=== PATIENT | female | born 1970 | race Two or more races ===

== ENCOUNTER 2024-11-18 09:12 | Emergency (ER) | payer MEDICAID, SELFPAY ==
[2024-11-18 09:55] VITALS: BP 125/83; PULSE 106; RESP 18; TEMP 36.6; O2SAT 97; BMI 27.0
--- NOTE | 2024-11-18 10:22 | PD.EDRME ---
Rapid Medical Screening Exam [facility] Arrival date/time: 11/18/24 09:12 Chief Complaint: Abdominal Pain Vital signs: Vital Signs Temperature 97.9 F 11/18/24 09:55 Pulse Rate 106 H 11/18/24 09:55 Respiratory Rate 18 11/18/24 09:55 Blood Pressure 125/83 11/18/24 09:55 Pulse Oximetry (%) 97 11/18/24 09:55 Oxygen Delivery Method Room Air 11/18/24 09:55 Pulse ox is 97% [facility] Narrative: 54-year-old female presents to ED with a complaint of right lower quadrant pain x 2 weeks. Denies vomiting, diarrhea. Describes the pain as a hauling type of pain that radiates to the right flank.
[2024-11-18 10:41] LABS: Collection Type, Urine Clean Catch
[2024-11-18 10:47] LABS: Basophils # (Auto) 0.0 Thou/mm3 (0.0-0.2); Basophils % (Auto) 0 % (0-2.5); Eosinophils # (Auto) 0.1 Thou/mm3 (0.0-0.5); Eosinophils % (Auto) 1 % (0-10); Hematocrit 43.7 % (36.0-46.0); Hemoglobin 15.2 g/dL (12.0-16.0); Immature Granulocytes Auto 0.01 Thou/mm3 (0.00-0.00); Lymphocytes # (Auto) 1.9 Thou/mm3 (1.0-4.8); Lymphocytes % (Auto) 26 % (10-50); Mean Corpuscular HGB Conc 34.8 g/dl (31.0-37.0); Mean Corpuscular Hemoglobin 31.0 pg (25.0-35.0); Mean Corpuscular Volume 89 fL (80-100); Monocytes # (Auto) 0.5 Thou/mm3 (0.0-0.8); Monocytes % (Auto) 7 % (0-12); Neutrophils # (Auto) 4.6 Thou/mm3 (1.8-7.7); Neutrophils % (Auto) 65 % (37-80); Nucleated Red Blood Cell # 0.00 Thou/mm3 (0.00-0.00); Nucleated Red Blood Cell % 0 /100 WBC (0); Platelet Count 259 Thou/mm3 (140-440); RDW Standard Deviation 39.1 fL (36.4-46.3); Red Blood Count 4.90 Miln/mm3 (4.00-5.20); White Blood Count 7.1 Thou/mm3 (3.6-11.0)
[2024-11-18 11:00] LABS: Sed Rate (ESR) 9 mm/hr (0-30)
[2024-11-18 11:07] LABS: Bilirubin,Urine Negative (Negative); Blood,Urine Negative (Negative); Clarity,Urine Turbid (Clear/Hazy); Color,Urine Lt-Yellow (Lt Yel-Yel); Glucose, Urine 4+ (Negative); Ketones,Urine Negative (Negative); Leukocyte Esterase,Urine Positive (Negative); Nitrite,Urine Negative (Negative); PH,Urine 6.0 (5.0-7.0); Protein,Urine Negative (Neg - Trace); RBC,Urine 2 /hpf (0-3); Specific Gravity,Urine 1.017 (1.001-1.035); Squamous Epithelial Cell,Urine 4 /hpf (0-5); Urobilinogen,Urine Negative mg/dL (0.0-1.0); WBC,Urine 44 /hpf (0-5)
[2024-11-18 11:10] LABS: Bacteria,Urine 4+; HCG Qualitative,Urine Negative
[2024-11-18 11:14] LABS: Alanine Aminotransferase 8 U/L (10-49); Albumin, Serum 4.6 gm/dL (3.5-5.0); Albumin/Globulin Ratio 1.7 (1.2-2.2); Alkaline Phosphatase 98 U/L (46-116); Anion Gap 6 (7-16); Aspartate Amino Transferase 11 U/L (0-34); BUN/Creatinine Ratio 14 Ratio (12-20); Bilirubin,Total 0.7 mg/dL (0.3-1.2); Blood Urea Nitrogen 11 mg/dL (9-23); Calcium 10.0 mg/dL (8.3-10.6); Calcium (Corrected) 10.0 mg/dL (8.5-10.1); Carbon Dioxide 30.6 mMol/L (20.0-31.0); Chloride 100 mMol/L (98-107); Creatinine (Component) 0.8 mg/dL (0.6-1.3); Estimated Creatinine Clearance 54.3 mL/min (>60); Globulin 2.7 gm/dL (2.3-3.5); Glucose 360 mg/dL (74-106); Lipase 34 U/L (12-53); Osmolality,Calculated 288 (275-295); Potassium 5.0 mMol/L (3.4-5.1); Sodium 137 mMol/L (136-145); Total Protein 7.3 gm/dL (5.7-8.2); eGFR > 60 See Note
--- NOTE | 2024-11-18 11:24 | XR_ITS ---
Examination: CT abdomen and pelvis without contrast. Coronal 3-D reconstructions. Sagittal 2-D reconstructions. Date and time of exam:November 18, 2024 1150 hours INDICATIONS: Right flank pain beginning 2 weeks ago CTDI: vol (mGy): 5.35 DLP: (mGycm): 283 Technique: Axial images of the abdomen have been obtained, 3 mm slice thickness Intravenous contrast material has not been administered. Low dose protocols were performed. One or more of the following dose reduction techniques were used; automated exposure control, adjustment of the mA and/or KV according to patient size, use of iterative reconstruction technique. Findings: No focal liver or splenic lesions No gallstones 1 mm nonobstructing right renal calculus, no hydronephrosis or ureteral calculi Normal appendix No bowel obstruction No bladder mass or bladder calculi Moderate osteopenia IMPRESSION: 1 mm nonobstructing right renal calculus, no hydronephrosis or ureteral calculi
[2024-11-18 15:15] VITALS: BP 133/86; PULSE 101; RESP 17; TEMP 36.8; O2SAT 96
--- NOTE | 2024-11-18 15:35 | PC.NURSE ---
PO [place] order cancelled by provider, patient will receive IV toradol for pain mangement.
--- NOTE | 2024-11-18 15:40 | EDNOTE_ITS ---
ED General RME/HPI General Chief complaint: Abdominal Pain Stated complaint: ABD PAIN RADIATING TO BACK, 12/24 Time Seen by Provider: 11/18/24 11:16 Arrival date/time: 11/18/24 09:12 CC: Right flank pain intermittent for past 2 weeks with progressive increasing severity, denies any dysuria. Denies nausea or vomiting. Patient is a diabetic states that she is out of her glipizide but continues to take her metformin 1000 mg twice daily. Patient denies chest pain fever chills shortness of breath or difficulty breathing. RME / HPI RME / HPI narrative: 54-year-old female presents to ED with a complaint of right lower quadrant pain x 2 weeks. Denies vomiting, diarrhea. Describes the pain as a hauling type of pain that radiates to the right flank. Related Data Previous Rx's ?Medication ?Instructions ?Recorded ciprofloxacin HCl 500 mg tablet 500 mg PO BID #14 tabs 11/18/24 glipizide 2.5 mg tablet 2.5 mg PO QDAY #30 tabs 09/07 Allergies Allergy/AdvReac Type Severity Reaction Status Date / Time No Known Allergies Allergy Verified 11/18/24 09:16 Review of Systems Review of Systems Narrative Review of Systems: GEN: No fever, no chills, no weight loss EYES: No discharge, no visual changes, no pain HEENT: No ear pain, no congestion, no sore throat PULM: No shortness of breath, no cough, no congestion CV: No chest pain, no dyspnea on exertion, no palpitations GI: No nausea, no vomiting, no diarrhea, no pain, no constipation : No frequency, no urgency, no dysuria MUSC/SKEL: No joint pain, no back pain, +flank pain SKIN: No rash PSYCH: No hallucinations, no depression HEME/LYMPH: No easy bleeding or bruising tendencies NEURO: No weakness, no headache ED Exam Narrative Physical exam: [General: Petite but not emaciated, not in any acute distress Head normocephalic HEENT: Within acceptable limits Neck is supple nontender Chest equal chest rise nontender to palpation Respiratory: Clear to auscultation no wheezes crackles or rubs CV: Rate rhythm is regular no murmurs rubs or clicks Abdomen is distended secondary to body habitus soft nontender no masses positive bowel sounds all 4 quadrants Back: No CVA tenderness no spinous process tenderness from cervical spine thoracic and lumbar spine Skin: Intact no petechiae rash induration ulceration or crepitus Extremities: Moving all extremity against resistance cap refill less than 2 seconds neurosensory intact Neuro: Awake alert oriented x3 Glascow coma 15 no focal deficits] Course Quality Measures none Orders Category Date Time Status CT Screening NOW Care 11/18/24 10:[address] Screening X1 Care 11/18/24 10:23 Completed Saline [Insert IV] NOW Care 11/18/24 11:[address] abdomen pelvis wo con Stat Exams 11/18/24 11:24 Completed CBC Stat Lab 11/18/24 10:35 Completed Comprehensive Metabolic Panel Stat Lab 11/18/24 10:35 Completed HCG Qualitative,Urine Stat Lab 11/18/24 10:34 Completed Lipase Stat Lab 11/18/24 10:35 Completed Sed Rate (ESR) Stat Lab 11/18/24 10:35 Completed Urinalysis Stat Lab 11/18/24 10:34 Completed HYDROcodone/APAP 10/325 [[place] 10/325] Med 11/18/24 10:25 Discontinued 1 tab PO X1 ONE Insulin Regular Med 11/18/24 11:17 Discontinued 5 unit SC X1 ONE Ketorolac Inj [Toradol Inj] Med 11/18/24 16:40 Discontinued 15 mg IM X1 ONE Ketorolac Inj [Toradol Inj] Med 11/18/24 15:32 Discontinued 15 mg IVP X1 ONE cefTRIAXone [Rocephin] 1,000 mg Med 11/18/24 16:23 Discontinued Lidocaine 1% 20 ml [Xylocaine 1% 20 ML] 2.1 ml IM X1 cefTRIAXone/D5w 1gm IV premix [Rocephin/D5w 1gm IV Med 11/18/24 11:17 Discontinued premix] 1 gm in 50 ml IV X1 Vital Signs Vital signs: Vital Signs Temperature 97.9 F 11/18/24 09:55 Pulse Rate 106 H 11/18/24 09:55 Respiratory Rate 18 11/18/24 09:55 Blood Pressure 125/83 11/18/24 09:55 Pulse Oximetry (%) 97 11/18/24 09:55 Oxygen Delivery Method Room Air 11/18/24 09:55 Discharge Plan Plan Patient Disposition: HOME (Self Care) Patient condition on transfer: Stable Prescriptions/Referrals Prescriptions/Med Rec: New glipizide 2.5 mg tablet 2.5 mg PO QDAY Qty: 30 0RF ciprofloxacin HCl 500 mg tablet 500 mg PO BID Qty: 14 0RF Referrals: Tae Lainez MD [Physician] - In 1 week No Primary/Family,Physician [Primary Care Provider] - In 1 week Problem List Clinical Impression: UTI (urinary tract infection), Hyperglycemia Patient/Caregiver Discharge Instructions Other Activity Instructions:: Take your medications as prescribed, follow-up with the [facility] listed above if there is a worsening of symptoms in spite of the medications return to the emergency room medially for further evaluation. Education Materials: Urinary Tract Infections in Women, ED Diabetes with High Blood Sugar Print Language: Greenlandic Stand Alone Forms: [employer] Award Info., Work/School Release, Patient Portal Info Letter BROOKE/YUDELKA Supervising Physician MARLEE Supervising Physician: Jake Martinez ENP MDM Clinical Information Provided by patient and EMS Medical Records Reviewed [facility] Meds/Rx Considered, not Ordered None Labs/Rad/Tests considered, not Ordered None Chronic Illness/Social Conditions Add or document further as needed: Diabetes EKG EKG not done Lab Interpretation Lab(s) interpretation(s): CBC shows no acute leukocytosis anemia thrombocytopenia CMP shows a blood glucose of 360 no no other significant electrolyte imbalances renal impairment transaminitis or T. bili elevation Urine is turbid to 4+ ketones 44 WBCs leukocyte esterase positive with 4+ bacteria. Imaging Provider imaging interpretation(s): CT of the abdomen shows the patient has a 1 mm nonobstructive stone in the renal pelvis otherwise no acute finding as interpreted by radiology. Medication Administration(s) Medication Administration History Discontinued Medications Hydrocodone Bitart/Acetaminophen (Hydrocodone/Apap 10/325 Tab) 1 tab PO X1 ONE Stop: 11/18/24 10:26 Last Admin: 11/18/24 15:35 Dose: Not Given Documented By: Non-Admin Reason: Cancelled by Provider Ceftriaxone Sodium 1,000 mg/ (Lidocaine HCl 2.1 ml) 0 mg IM X1 ONE Stop: 11/18/24 16:24 Last Admin: 11/18/24 16:44 Dose: 1,000 mg Documented By: Ceftriaxone Sodium/Dextrose (Rocephin/D5w 1gm Iv Premix) 1 gm in 50 mls @ 100 mls/hr IV X1 ONE Stop: 11/18/24 11:46 Last Admin: 11/18/24 16:56 Dose: Not Given Documented By: Non-Admin Reason: Cancelled by Provider Insulin Human Regular (Insulin Hum Regular 1 Unit/0.01 Ml (Per Unit)) 5 unit SC X1 ONE Stop: 11/18/24 11:18 Last Admin: 11/18/24 16:41 Dose: 5 unit Documented By: Co-signed By: MARICHUY Ketorolac Tromethamine (Ketorolac Inj 30 Mg/Ml Vial) 15 mg IVP X1 ONE Stop: 11/18/24 15:33 Last Admin: 11/18/24 16:56 Dose: Not Given Documented By: Non-Admin Reason: Cancelled by Provider Ketorolac Tromethamine (Ketorolac Inj 60 Mg/2 Ml Vial) 15 mg IM X1 ONE Stop: 11/18/24 16:41 Last Admin: 11/18/24 16:44 Dose: 15 mg Documented By: Diagnosis Differential diagnosis: Hyperglycemia pyelonephritis UTI Dispositon Disposition: Discharge Home
[2024-11-18] MEDS: INSULIN HUM REGULAR 1 UNIT/0.01 ML (PER UNIT) 5 UNIT SC (16:41)
[2024-11-18] MEDS: cefTRIAXone 1,000 MG, LIDOCAINE 1% 20 ML 2.1 ML IM (16:44)
[2024-11-18] MEDS: KETOROLAC INJ 60 MG/2 ML VIAL 15 MG IM (16:44)
== END 2024-11-18 17:35 | disposition home or self-care (01) ==
PROVIDERS: Physician Assistant; Emergency Provider Emergency Medicine
DX: N39.0 Urinary tract infection, site not specified (principal); E11.65 Type 2 diabetes mellitus with hyperglycemia; Z79.84 Long term (current) use of oral hypoglycemic drugs
CPT/HCPCS: 36415; 74176; 80053; 81001; 81025; 83690; 85025; 85652; 96372; 99283; J0696; J1815; J1885; J3490

== ENCOUNTER 2025-03-16 07:30 | Emergency (ER) | payer MEDICAID, SELFPAY ==
[2025-03-16 07:31] VITALS: BMI 18.1
[2025-03-16 07:39] VITALS: BP 130/85; PULSE 130; RESP 19; TEMP 36.8; O2SAT 97
--- NOTE | 2025-03-16 07:46 | EKG_ITS ---
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
--- NOTE | 2025-03-16 07:47 | PD.EDRME ---
Rapid Medical Screening Exam E Arrival date/time: 03/16/25 07:30 54-year-old female with no known medical history presents to the emergency room with a chief complaint of right leg pain, palpitations, back pain x 1 month that has progressively gotten worse in the last 3 days I have greeted and performed a focused initial assessment of this patient. A comprehensive ED assessment and evaluation of the patient, analysis of all test results, and completion of the medical decision making process will be conducted by additional ED providers. Chief Complaint: Extremity Injury, Lower Time Seen by Provider: 03/16/25 07:36 Vital signs: Vital Signs Temperature 98.2 F 03/16/25 07:39 Pulse Rate 130 H 03/16/25 07:39 Respiratory Rate 19 03/16/25 07:39 Blood Pressure 130/85 H 03/16/25 07:39 Pulse Oximetry (%) 97 03/16/25 07:39 Oxygen Delivery Method Room Air 03/16/25 07:39 Vital signs reviewed by provider: Yes Exam: Right sciatic notch tenderness with palpation Strong and regular rhythm Clinical Impression: Tachycardia/sciatica
[2025-03-16] MEDS: KETOROLAC INJ 60 MG/2 ML VIAL 30 MG IM (07:58)
[2025-03-16 08:35] LABS: Basophils # (Auto) 0.0 Thou/mm3 (0.0-0.2); Basophils % (Auto) 0 % (0-2.5); Eosinophils # (Auto) 0.2 Thou/mm3 (0.0-0.5); Eosinophils % (Auto) 2 % (0-10); Hematocrit 40.3 % (36.0-46.0); Hemoglobin 13.8 g/dL (12.0-16.0); Immature Granulocytes Auto 0.02 Thou/mm3 (0.00-0.00); Lymphocytes # (Auto) 2.7 Thou/mm3 (1.0-4.8); Lymphocytes % (Auto) 34 % (10-50); Mean Corpuscular HGB Conc 34.2 g/dl (31.0-37.0); Mean Corpuscular Hemoglobin 30.3 pg (25.0-35.0); Mean Corpuscular Volume 89 fL (80-100); Monocytes # (Auto) 0.6 Thou/mm3 (0.0-0.8); Monocytes % (Auto) 7 % (0-12); Neutrophils # (Auto) 4.6 Thou/mm3 (1.8-7.7); Neutrophils % (Auto) 57 % (37-80); Nucleated Red Blood Cell # 0.00 Thou/mm3 (0.00-0.00); Nucleated Red Blood Cell % 0 /100 WBC (0); Platelet Count 276 Thou/mm3 (140-440); RDW Standard Deviation 39.7 fL (36.4-46.3); Red Blood Count 4.55 Miln/mm3 (4.00-5.20); White Blood Count 8.1 Thou/mm3 (3.6-11.0)
[2025-03-16 08:35] LABS: Collection Type, Urine Clean Catch
[2025-03-16 08:36] VITALS: BP 145/98; PULSE 110; RESP 18; TEMP 36.7; O2SAT 98
[2025-03-16 08:55] LABS: B-Type Natriuretic Peptide < 20 pg/mL (0-100)
--- NOTE | 2025-03-16 08:57 | PD.EDEXREM ---
ED Extremity Problem RME/HPI General Chief complaint: Extremity Injury, Lower Stated complaint: Leg pain Time Seen by Provider: 03/16/25 07:36 Arrival date/time: 03/16/25 07:30 RME / HPI RME / HPI Narrative: 03/16/25 07:30 54-year-old female with no known medical history presents to the emergency room with a chief complaint of right leg pain, palpitations, back pain x 1 month that has progressively gotten worse in the last 3 days I have greeted and performed a focused initial assessment of this patient. A comprehensive ED assessment and evaluation of the patient, analysis of all test results, and completion of the medical decision making process will be conducted by additional ED providers. DR. COBOS MAIN ED EVALUATION 54 year old female with recently diagnosed diabetes presents to the ED for evaluation of bilateral leg pain beginning intermittently 3 months ago, though worsening in severity last night. Pain described as aching in sensation that is localized to bilateral thighs, rating as severe. Additionally complains of similar pain to her mid upper back that is accompanied by an itching sensation, rating as moderate. Reportedly had consulted with her PCP 3 weeks ago who performed labs, urine and stool tests and told her pain was most likely due to allergies and prescribed medications. States the medications have not provided any relief. Patient denies taking any medication for pain at home. Denies any history of similar pain. Denies any rash. Exam: Right sciatic notch tenderness with palpation Strong and regular rhythm Impression: Tachycardia/sciatica Related Data Previous Rx's ?Medication ?Instructions ?Recorded ciprofloxacin HCl 500 mg tablet 500 mg PO BID #14 tabs 11/18/24 glipizide 2.5 mg tablet 2.5 mg PO QDAY #30 tabs 11/18/24 hydrocodone 5 mg-acetaminophen 325 1 tab PO Q6H PRN pain #14 tabs 03/16/25 mg tablet ibuprofen 600 mg tablet 600 mg PO Q6H PRN pain #30 tabs 03/16/25 Allergies Allergy/AdvReac Type Severity Reaction Status Date / Time No Known Allergies Allergy Verified 03/16/25 07:33 Review of Systems Review of Systems Systems Reviewed: All systems reviewed, normal except as documented Past Medical History Past Medical History ENDOCRINE: Positive Diabetes Mellitus Type 2 Social History SMOKING STATUS: Never smoker ED Exam Narrative Physical exam: GENERAL APPEARANCE: alert and oriented x 4, well-developed, well-nourished, no acute distress HEENT: Normocephalic, atraumatic; pupils equal, round, reactive to light; EOMI; mucous membranes pink, moist; oropharynx clear NECK: Supple LUNGS: CTABL; no wheezes, no rales, no rhonchi HEART: Regular rate, regular rhythm; normal S1, S2; no murmurs ABDOMEN: non distended; normal BS; soft, no tenderness, no guarding, no rebound; no masses, no organomegaly, no hernia BACK: no CVA tenderness, no rashes, mild mid back tenderness to palpation, no step off, deformity, or crepitus. EXTREMITIES: atraumatic; no edema NEUROLOGIC: awake; alert and oriented x4; cranial nerves II-XII grossly intact; no focal sensory or motor deficits PSYCHIATRIC: appropriate mood and affect SKIN: warm, dry, normal color; no rashes Course Quality Measures none Orders Category Date Time Status EKG (ED ONLY) *Do not use* NOW Care 03/16/25 07:46 Completed EKG (ED Only) Stat Exams 03/16/25 07:46 Draft XR lumbar spine 2-3V Stat Exams 03/16/25 09:31 Completed XR thoracic spine 3V Stat Exams 03/16/25 09:23 Completed B-Type Natriuretic Peptide Stat Lab 03/16/25 08:15 Completed CBC Stat Lab 03/16/25 08:15 Completed Comprehensive Metabolic Panel Stat Lab 03/16/25 08:15 Completed Free T4 (Free Thyroxine) Stat Lab 03/16/25 08:15 Completed Magnesium Stat Lab 03/16/25 08:15 Completed TSH [Thyroid Stimulating Hormone] Stat Lab 03/16/25 08:15 Completed Troponin I Stat Lab 03/16/25 08:15 Completed Urinalysis, C/S if Indicated Stat Lab 03/16/25 08:30 Completed HYDROcodone*/APAP 5/325 [[place] 5/325] Med 03/16/25 09:31 Discontinued 1 tab PO X1 ONE Ketorolac Inj [Toradol Inj] Med 03/16/25 07:46 Discontinued 30 mg IM X1 ONE Vital Signs Vital signs: Vital Signs Temperature 98.2 F 03/16/25 07:39 Pulse Rate 130 H 03/16/25 07:39 Respiratory Rate 19 03/16/25 07:39 Blood Pressure 130/85 H 03/16/25 07:39 Pulse Oximetry (%) 97 03/16/25 07:39 Oxygen Delivery Method Room Air 03/16/25 07:39 Pulse ox is 97% on room air which is adequate. Extremity Problem MDM Narrative MDM Narrative:: Marimar Peng am scribing for and in the presence of Dr. Cobos. Patient remains clinically stable throughout the emergency department visit. We reviewed all the results, analysis, and treatment plans. Patient is amenable to discharge. Strict return precautions were outlined. Patient data External records reviewed:: [facility] previous records Clinical information provided by:: patient Social determinants that could affect healthcare access:: none Patient has the following chronic illnesses:: Diabetes How is presenting disease/condition affected by chronic disease/condition?: uneffected by Evaluation data The following diagnostics were reviewed and interpreted by me:: lab results, radiology exam(s) and EKG tracing(s) (EKG @ 07:49 AM, sinus tachycardia, rate 125, no STEMI. ) Lab and/or radiology exams considered but not ordered:: None Interpretation Summary: Ordering Physician: Bruna Cobos MD Date of Service: 03/16/25 Procedure(s): XR thoracic spine 3V Accession Number(s): [id number] cc: Tae Lainez MD; Jann Laguerre MD; Bruna Cobos MD~ EXAMINATION: Thoracic spine 3 views TECHNIQUE: AP lateral coned lateral upper dorsal spine 3 views Date and time: March 16, 2025, 1006 hours INDICATIONS: Back pain radiating to the legs this week FINDINGS: Adequate alignment thoracic vertebral bodies on the lateral view Mild thoracic spondylosis Mild diffuse thoracic disc narrowing No thoracic fracture IMPRESSION: Mild diffuse thoracic degenerative disc disease Dictated By: Jann Laguerre MD Signed By: <Electronically signed by Jann Laguerre MD in OV> 03/16/25 1025 Ordering Physician: Bruna Cobos MD Date of Service: 03/16/25 Procedure(s): XR lumbar spine 2-3V Accession Number(s): [id number] cc: Tae Lainez MD; Jann Laguerre MD; Bruna Cobos MD~ EXAMINATION: Lumbar spine 3 views TECHNIQUE: AP lateral: Lateral lower lumbar spine 3 views Date and time: March 16, 2025, 0957 hours INDICATIONS: Low back pain radiating down both legs beginning 2 months ago. FINDINGS: Moderate osteopenia Adequate alignment lumbar vertebral bodies on the lateral view Mild disc narrowing L5-S1 No spondylolisthesis IMPRESSION: No lumbar fracture Mild disc narrowing L5-S1 Dictated By: Jann Laguerre MD Signed By: <Electronically signed by Jann Laguerre MD in OV> 03/16/25 1026 Medications / Prescriptions Medications or Prescriptions considered but not ordered:: None Medication administrations:: Medication Administration History Discontinued Medications Hydrocodone Bitart/Acetaminophen (Hydrocodone/Apap 5/325 Tablet) 1 tab PO X1 ONE Stop: 03/16/25 09:32 Last Admin: 03/16/25 09:38 Dose: 1 tab Documented By: KIN Ketorolac Tromethamine (Ketorolac Inj 60 Mg/2 Ml Vial) 30 mg IM X1 ONE Stop: 03/16/25 07:47 Last Admin: 03/16/25 07:58 Dose: 30 mg Documented By: KIN See above Consultations Consultation(s) initiated? (list below): No Diagnosis Most likely diagnosis given after review of the tests above:: Back pain DJD Admission Indicated Admission indicated?: not indicated Admission Request Was there a request for admission?: No Disposition Plan Disposition Plan: Discharge Discharge Attestation Discharge Attestation: The patient and all family members were given an opportunity to ask questions and understood the discharge instructions. Discharge instructions specifically effects, indications for sooner follow up or return to the emergency department, and the expected course of current diagnosis. Patient condition: Stable Discharge Plan Plan Patient Disposition: HOME (Self Care) Prescriptions/Referrals Prescriptions/Med Rec: New ibuprofen 600 mg tablet 600 mg PO Q6H PRN (Reason: pain) Qty: 30 0RF hydrocodone-acetaminophen 5-325 mg tablet 1 tab PO Q6H MDD 9 PRN (Reason: pain) Qty: 14 0RF No Action glipizide 2.5 mg tablet 2.5 mg PO QDAY Qty: 30 0RF ciprofloxacin HCl 500 mg tablet 500 mg PO BID Qty: 14 0RF Referrals: Tae Lainez MD [Primary Care Provider, Family Practice] - In 1 week Problem List Clinical Impression: Back pain, DJD (degenerative joint disease), thoracolumbar Patient/Caregiver Discharge Instructions Education Materials: Relieving Back Pain, Self-Care for Low Back Pain, ED Back Care Tips Print Language: Paraguayan Stand Alone Forms: [employer] Award Info., Patient Portal Info Letter
[2025-03-16 09:04] LABS: Alanine Aminotransferase 12 U/L (10-49); Albumin, Serum 4.8 gm/dL (3.5-5.0); Albumin/Globulin Ratio 1.7 (1.2-2.2); Alkaline Phosphatase 89 U/L (46-116); Anion Gap 10 (7-16); Aspartate Amino Transferase 17 U/L (0-34); BUN/Creatinine Ratio 13 Ratio (12-20); Bilirubin,Total 0.5 mg/dL (0.3-1.2); Blood Urea Nitrogen 8 mg/dL (9-23); Calcium 9.7 mg/dL (8.3-10.6); Calcium (Corrected) 9.7 mg/dL (8.5-10.1); Carbon Dioxide 27.7 mMol/L (20.0-31.0); Chloride 102 mMol/L (98-107); Creatinine (Component) 0.6 mg/dL (0.6-1.3); Estimated Creatinine Clearance 81.4 mL/min (>60); Free T4 (Free Thyroxine) 1.39 ng/dL (0.89-1.76); Globulin 2.8 gm/dL (2.3-3.5); Glucose 319 mg/dL (74-106); Magnesium 1.8 mg/dL (1.6-2.6); Osmolality,Calculated 289 (275-295); Potassium 4.4 mMol/L (3.4-5.1); Sodium 140 mMol/L (136-145); Thyroid Stimulating Hormone 3.92 uIU/mL (0.55-4.78); Total Protein 7.6 gm/dL (5.7-8.2); Troponin I < 0.020 ng/mL (0.0-0.045); eGFR > 60 See Note
[2025-03-16 09:07] LABS: Bacteria,Urine 4+; Bilirubin,Urine Negative (Negative); Blood,Urine Negative (Negative); Budding Yeast,Urine Present; Clarity,Urine Turbid (Clear/Hazy); Color,Urine Yellow (Lt Yel-Yel); Culture Indicated,Urine Contaminated; Glucose, Urine 4+ (Negative); Ketones,Urine Trace (Negative); Leukocyte Esterase,Urine Positive (Negative); Nitrite,Urine Positive (Negative); PH,Urine 5.5 (5.0-7.0); Protein,Urine Trace (Neg - Trace); RBC,Urine 6 /hpf (0-3); Specific Gravity,Urine 1.031 (1.001-1.035); Squamous Epithelial Cell,Urine 24 /hpf (0-5); Urobilinogen,Urine 2.0 mg/dL (0.0-1.0); WBC,Urine 48 /hpf (0-5)
--- NOTE | 2025-03-16 09:23 | XR_ITS ---
EXAMINATION: Thoracic spine 3 views TECHNIQUE: AP lateral coned lateral upper dorsal spine 3 views Date and time: March 16, 2025, 1006 hours INDICATIONS: Back pain radiating to the legs this week FINDINGS: Adequate alignment thoracic vertebral bodies on the lateral view Mild thoracic spondylosis Mild diffuse thoracic disc narrowing No thoracic fracture IMPRESSION: Mild diffuse thoracic degenerative disc disease
--- NOTE | 2025-03-16 09:31 | XR_ITS ---
EXAMINATION: Lumbar spine 3 views TECHNIQUE: AP lateral: Lateral lower lumbar spine 3 views Date and time: March 16, 2025, 0957 hours INDICATIONS: Low back pain radiating down both legs beginning 2 months ago. FINDINGS: Moderate osteopenia Adequate alignment lumbar vertebral bodies on the lateral view Mild disc narrowing L5-S1 No spondylolisthesis IMPRESSION: No lumbar fracture Mild disc narrowing L5-S1
[2025-03-16] MEDS: HYDROcodone/APAP 5/325 TABLET 1 TAB PO (09:38)
[2025-03-16 10:34] VITALS: BP 120/79; PULSE 97; RESP 18; TEMP 36.8; O2SAT 99
[2025-03-16 12:22] VITALS: PULSE 97; RESP 18; TEMP 36.7; O2SAT 98
== END 2025-03-16 12:24 | disposition home or self-care (01) ==
PROVIDERS: Nurse Practitioner Family; Emergency Provider Emergency Medicine; PCP Family Medicine
DX: M47.815 Spondylosis without myelopathy or radiculopathy, thoracolumbar region (principal); M48.061 Spinal stenosis, lumbar region without neurogenic claudication; R00.0 Tachycardia, unspecified
CPT/HCPCS: 36415; 72072; 72100; 80053; 81001; 83735; 83880; 84439; 84443; 84484; 85025; 93005; 96372; 99284; J1885; A9270